=== PATIENT | male | born 1980 | race Caucasian/White ===

== ENCOUNTER 2017-09-10 08:54 | Day surgery (SDC) | payer BC ==
[~2017-09-10 08:54] MED LIST: ACETAMINOPHEN 1,000 MG/100 ML BTL IV ONE; CEFAZOLIN 2 Gram 2 GM/50 ML BAG IVPB ONE
[2017-09-10] MEDS ORDERED: SUCCINYLCHOLINE 20 MG/ML 10ML IVP ONE (08:55)
[2017-09-10] MEDS ORDERED: LIDOCAINE 2% MDV (20MG/ML) 20ML VIAL IV ONE (08:55)
[2017-09-10] MEDS ORDERED: LIDOCAINE 1% W/EPI 1:200,000 MPF 30ML SQ ONE (08:55)
[2017-09-10] MEDS ORDERED: ROCURONIUM BROMIDE 50MG/5ML VIAL IV ONE (08:55)
[2017-09-10] MEDS ORDERED: NEOSTIGMINE 1 MG/1 ML,10ML VIAL IV ONE (08:55)
[2017-09-10] MEDS ORDERED: FENTANYL PF 100MCG/2ML VIAL IV ONE (08:55)
[2017-09-10] MEDS ORDERED: ONDANSETRON HCL IV 4 MG/2 ML VIAL IVP ONE ×2 (08:55)
[2017-09-10] MEDS ORDERED: GLYCOPYRROLATE 0.2 MG/ML ML IV ONE (08:55)
[2017-09-10] MEDS ORDERED: PROPOFOL 10 MG/ML VIAL IV ONE (08:55)
[2017-09-10] MEDS ORDERED: CEFAZOLIN 2 Gram 2 GM/50 ML BAG IVPB ONE (08:55)
[2017-09-10] MEDS ORDERED: KETOROLAC 30 MG/ML VIAL IVP ONE (08:55)
[2017-09-10] MEDS ORDERED: MIDAZOLAM HCL 2MG/2ML VIAL IV ONE (08:55)
[2017-09-10] MEDS ORDERED: SEVOFLURANE 250 ML INH ONE (08:55)
--- NOTE | 2017-09-14 07:30 | Operative Note ---
DATE OF SURGERY: 09/10/2017 Surgeon: Clarke Cohn DO PREOPERATIVE DIAGNOSIS: Acromioclavicular arthrosis of the right shoulder. POSTOPERATIVE DIAGNOSIS: Acromioclavicular arthrosis of the right shoulder. OPERATION: Rick procedure of the right shoulder (resection of right distal clavicle). DESCRIPTION OF PROCEDURE: This 28-year-old male was taken to the operating room and placed in the supine position on the operating room table. A general anesthetic was administered. The patient was placed in the beach chair position with all bony prominences well padded and the head well secured. The right shoulder was prepped with Hibiclens and draped in the usual sterile fashion. The right shoulder was then approached by making a longitudinal incision in the Rochelle's lines overlying the acromioclavicular joint of the right shoulder. Dissection was carried down through the skin and subcutaneous tissue. Hemostasis obtained with electrocautery. A "T" type incision was made in the capsule, superior aspect of the AC joint. Subperiosteal elevation was carried out to expose the entire distal clavicle and approximately 0.75 to 1 cm of bone was removed with the oscillating saw. Power rasp was used to smooth and contour the cut surface of bone. The wound was irrigated and hemostasis obtained with the electrocautery. The patient had satisfactory amount of resection. There was no evidence of impingement. The ruptured disc was completely removed. The periosteum and joint capsule were reapproximated with #1 Vicryl, the subcutaneous tissue closed with 4-0 Vicryl, and the skin with a running interlocking 4-0 nylon suture. The wound was infiltrated with 1% Xylocaine with epinephrine. Sterile dressings applied. Tourniquet and knee thacker released and the patient taken to the recovery room in satisfactory condition. 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 CC: Erika BURKETT
== END 2017-09-10 13:00 | disposition home or self-care (01) ==
LOC: SUR 08:54
PROVIDERS: ATTEND Orthopaedic Surgery
DX: M19.011 Primary osteoarthritis, right shoulder (principal); I10 Essential (primary) hypertension
CPT/HCPCS: 23120; 00450; J1885; J2405; J3010; J0690; J0330; J2710

== ENCOUNTER 2018-07-24 13:11 | Emergency (ER) | payer SELFPAY ==
[2018-07-24] MEDS ORDERED: MAGNESIUM HYDROXIDE/AL HYDROX 30 ML, LIDOCAINE VISC 2% 15ML 15 ML PO ONE ×2 (13:31)
--- NOTE | 2018-07-24 13:33 | Emergency Department Record ---
History of Present Illness - General Chief Complaint: Chest Pain Stated Complaint: CHEST PAIN Time Seen by Provider: 07/24/18 13:28 Source: Patient, RN notes reviewed Mode of Arrival: Ambulatory - History of Present Illness Initial Comments: patient he had epigastric abd pain and hypertension and ran out of his BP medication first week of may. and no money to go to his Dr. Onset/Timin -: Hour(s) Pain Location: Epigastric Severity: Mild Severity scale (1-10): 3 Quality: Aching Consistency: Intermittent - Related Data Previous Rx's Medication Instructions Recorded Amlodipine Besylate [Norvasc] 5 mg PO DAILY #30 tab 03/08/16 Amlodipine Besylate 5 mg PO DAILY #30 tab 07/24/18 Omeprazole 20 mg PO DAILY #30 cap.dr 07/24/18 Allergies Allergy/AdvReac Type Severity Reaction Status Date / Time No Known Drug Allergies Allergy Verified 07/24/18 13:21 Travel Screening - Travel/Exposure Within Last 30 Days Have you traveled within the last 30 days?: No - Travel/Exposure Within Last Year Have you traveled outside the [place] in the last year?: No - Additonal Travel Details Have you been exposed to anyone with a communicable illness?: No - Travel Symptoms Symptom Screening: None Review of Systems Reviewed: No additional complaints except as noted below Constitutional: Reports: As per HPI. Denies: Chills, Fever, Malaise, Night sweats, Weakness, Weight change Eyes: Reports: As per HPI. Denies: Eye discharge, Eye pain, Photophobia, Vision change ENT: Reports: As per HPI. Denies: Congestion, Dental pain, Ear pain, Epistaxis , Hearing loss, Throat pain Respiratory: Reports: As per HPI. Denies: Cough, Dyspnea, Hemoptysis, Stridor, Wheezes Cardiovascular: Reports: As per HPI. Denies: Arrhythmia, Chest pain, Dyspnea on exertion, Edema, Murmurs, Orthopnea, Palpitations, Paroxysmal nocturnal dyspnea, Rheumatic Fever, Syncope Endocrine: Reports: As per HPI. Denies: Fatigue, Heat or cold intolerance, Polydipsia, Polyuria Gastrointestinal: Reports: As per HPI, Abdominal pain. Denies: Constipation, Diarrhea, Hematemesis, Hematochezia, Melena, Nausea, Vomiting Genitourinary: Reports: As per HPI. Denies: Dysuria, Frequency, Hematuria, Incontinence, Retention, Testicular pain, Testicular mass, Urgency Musculoskeletal: Reports: As per HPI. Denies: Arthralgia, Back pain, Gout, Joint swelling, Myalgia, Neck pain Skin: Reports: As per HPI. Denies: Bruising, Change in color, Change in hair/ nails, Lesions, Pruritus, Rash Neurological: Reports: As per HPI. Denies: Abnormal gait, Confusion, Headache, Numbness, Paresthesias, Seizure, Tingling, Tremors, Vertigo, Weakness Psychiatric: Reports: As per HPI. Denies: Anxiety, Auditory hallucinations, Depression, Homicidal thoughts, Suicidal thoughts, Visual hallucinations Hematological/Lymphatic: Reports: As per HPI. Denies: Anemia, Blood Clots, Easy bleeding, Easy bruising, Swollen glands Past Medical History - SOCIAL HISTORY Smoking Status: Never smoker Alcohol Use: Occasional Drug Use: None - RESPIRATORY Hx Respiratory Disorders: No - CARDIOVASCULAR Hx Cardio Disorders: Yes Hx Hypertension: Yes (stopped meds 06/14 due to cost) - NEURO Hx Neuro Disorders: No - GI Hx GI Disorders: No - Hx Genitourinary Disorders: No - ENDOCRINE Hx Endocrine Disorders: No - MUSCULOSKELETAL Hx Musculoskeletal Disorders: Yes Comment:: injured right shoulder - PSYCH Hx Psych Problems: No - HEMATOLOGY/ONCOLOGY Hx Hematology/Oncology Disorders: No Family Medical History Any Significant Family History?: Yes Hx Cancer: Mother Hx Diabetes: Father Hx Heart Disease: Father Hx HTN: Father Physical Exam - General General Appearance: Alert, Oriented x3, Cooperative, No acute distress - Head Head exam: Normal inspection - Eye Eye exam: Normal appearance, PERRL Pupils: Normal accommodation - ENT ENT exam: Normal exam, Mucous membranes moist, Normal external ear exam, Normal orophraynx, TM's normal bilaterally Ear exam: Normal external inspection. negative: External canal tenderness Nasal Exam: Normal inspection. negative: Discharge, Sinus tenderness Mouth exam: Normal external inspection, Tongue normal Teeth exam: Normal inspection. negative: Dental caries Throat exam: Normal inspection. negative: Tonsillar erythema, Tonsillar exudate - Neck Neck exam: Normal inspection, Full ROM. negative: Tenderness - Respiratory Respiratory exam: Normal lung sounds bilaterally. negative: Respiratory distress - Cardiovascular Cardiovascular Exam: Regular rate, Normal rhythm, Normal heart sounds - GI/Abdominal GI/Abdominal exam: Soft, Normal bowel sounds. negative: Tenderness - Rectal Rectal exam: Deferred - exam: Deferred - Extremities Extremities exam: Normal inspection, Full ROM, Normal capillary refill. negative: Tenderness - Back Back exam: Reports: Normal inspection, Full ROM. Denies: Muscle spasm, Rash noted, Tenderness - Neurological Neurological exam: Alert, Normal gait, Oriented X3, Reflexes normal - Psychiatric Psychiatric exam: Normal affect, Normal mood - Skin Skin exam: Dry, Intact, Normal color, Warm Course Vital Signs 07/24/18 13:15 Temperature 99.0 F Pulse Rate 79 Respiratory 18 Rate Blood Pressure 137/99 Pulse Ox 99 - Reevaluation(s) Reevaluation #1: -feeling better 07/24/18 14:29 Medical Decision Making - Data Complexity MDM Data: EKG Ordered and/or Reviewed (no acute changes) - Lab Data Result diagrams: 07/24/18 13:20 07/24/18 13:20 Disposition Clinical Impression: GERD (gastroesophageal reflux disease) Qualifiers: Esophagitis presence: without esophagitis Qualified Code(s): K21.9 - Gastro- esophageal reflux disease without esophagitis Disposition: Home, Self-Care Condition: (1) Good Instructions: Gastroesophageal Reflux Disease (ED) Additional Instructions: follow up with family Dr in one week Prescriptions: Amlodipine Besylate 5 mg PO DAILY #30 tab Omeprazole 20 mg PO DAILY #30 cap.dr Forms: Patient Portal Access Time of Disposition: 14:34 Quality - Quality Measures Quality Measures: N/A - Blood Pressure Screening Does Patient Have Any of the Following: No Blood Pressure Classification: Hypertensive Reading Systolic Measurement: 137 Diastolic Measurement: 99 Screening for High Blood Pressure: < First Hypertensive BP, F/U Documented > [ [id number]] First Hypertensive Follow-up Interventions: Referral to alternative/primary care provider.
[2018-07-24] MEDS ORDERED: ASPIRIN 81 MG CHEWABLE TABLET PO ONE (13:36)
[2018-07-24 13:49] LABS: BASO % 0.2 % (0-6); EOS % 0.6 % (0-6); GRAN % 49.7 % (47-80); HEMATOCRIT 47.7 % (42.0-52.0); HEMOGLOBIN 16.3 gm/dl (14.0-18.0); LYMPH % 35.5 % (16-45); MEAN CELL VOLUME 87.7 fl (81-97); MEAN CORPUSCULAR HGB CONC 34.2 g/dl (32-36); MEAN PLATELET VOLUME 11.9 fl (7.4-10.4); PLATELET COUNT 186 K/uL (130-400); RED BLOOD COUNT 5.44 M/uL (4.40-5.70); RED CELL DISTRIBUTION WIDTH 13.5 % (11.5-14.5); WHITE BLOOD COUNT W/O DIFF 4.7 K/uL (4.2-12.2)
[2018-07-24 13:58] LABS: BLOOD UREA NITROGEN 14 mg/dL (6-20); CREATININE 1.1 mg/dL (0.7-1.2); EST GLOMERULAR FILTRATION RATE > 60 mL/min
[2018-07-24 14:01] LABS: GLUCOSE,RANDOM 102 mg/dL (74-109)
== END 2018-07-24 14:40 | disposition home or self-care (01) ==
LOC: ER 13:11
DX: K21.9 Gastro-esophageal reflux disease without esophagitis (principal); R42 Dizziness and giddiness; R51 Headache; R07.9 Chest pain, unspecified; R10.13 Epigastric pain; I10 Essential (primary) hypertension
CPT/HCPCS: 80048; 84484; 85025; 93005; 93010; 99284